=== PATIENT | male | born 1970 | race Hispanic/Latino ===

== ENCOUNTER → 2023-07-18 | Outpatient (CLI) | payer OTHER | END | disposition home or self-care (01) | LOC: RAH 09:31 | PROVIDERS: ATTEND Internal Medicine | DX: M47.812 Spondylosis without myelopathy or radiculopathy, cervical region (principal); M75.102 Unspecified rotator cuff tear or rupture of left shoulder, not specified as traumatic; M50.30 Other cervical disc degeneration, unspecified cervical region; M50.20 Other cervical disc displacement, unspecified cervical region; M19.012 Primary osteoarthritis, left shoulder | CPT/HCPCS: 72141; 73221 ==

== ENCOUNTER → 2023-07-22 | Outpatient (CLI) | payer OTHER | END | disposition home or self-care (01) | LOC: EDUNIT# 11:00 → RAH 11:02 | PROVIDERS: ATTEND Internal Medicine | DX: M25.522 Pain in left elbow (principal) | CPT/HCPCS: 73221 ==